=== PATIENT | female | born 1965 | race African-American/Black ===

== ENCOUNTER 2022-03-12 11:26 | Outpatient (CLI) | payer OTHER | END 2022-03-12 11:27 | disposition home or self-care (01) | LOC: CSHLAB 11:26 | PROVIDERS: ATTEND Obstetrics & Gynecology | DX: Z01.818 Encounter for other preprocedural examination (principal); Z20.822 Contact with and (suspected) exposure to COVID-19; D25.9 Leiomyoma of uterus, unspecified; D36.9 Benign neoplasm, unspecified site | CPT/HCPCS: 84703; 85027; 86850; 86900; 86901; 93005; 93010; U0003; U0005 ==

== ENCOUNTER 2022-03-17 08:05 | Day surgery (SDC) | payer OTHER ==
[2022-03-12 13:59] LABS: Hemoglobin 12.9 g/dL (12.0-15.5); Mean Corpuscular HGB CONC 33.3 g/dL (32.0-36.0); Mean Corpuscular Hemoglobin 27.4 pg (27.0-33.0); Mean Corpuscular Volume 82.3 fl (81.6-98.3); Mean Platelet Volume 10.3 fl (7.4-10.4); Platelet Count 260 10x3/uL (150-450); RBC Distribution Width 12.3 % (11.5-14.5); White Blood Cell (WBC) Count 5.5 10x3/uL (3.5-10.5)
[2022-03-12 14:06] LABS: BHCG - Serum Negative (NEGATIVE); Pregs Control Background? CLEAR/WHITE (CLR/WHITE); Pregs Control Bar Appear? YES (CONTROL BAR)
[2022-03-13 12:27] LABS: SARS-CoV-2 PCR by NAA Not Detected (NotDetected)
[2022-03-15 11:49] VITALS: BMI 36.7
[2022-03-17] MEDS ORDERED: CeleCOXIB 100 MG CAP ONE (08:27)
[2022-03-17] MEDS ORDERED: Famotidine/PF 20 mg/2ml Vial ONE (08:27)
[2022-03-17] MEDS ORDERED: Gabapentin 300 MG CAP ONE (08:27)
[2022-03-17] MEDS ORDERED: Lidocaine 1% MPF 2 ML VIAL ONE (08:28)
[2022-03-17] MEDS ORDERED: Midazolam HCl 2 mg/2 ml Vial ONE ×2 (09:57→10:23)
[2022-03-17] MEDS ORDERED: PROPOFOL 20 ML ONE (10:23)
[2022-03-17] MEDS ORDERED: Lidocaine 1% PF 5 ML VIAL ONE (10:23)
[2022-03-17] MEDS ORDERED: Fentanyl 250 MCG/5 ML VIAL ONE (10:23)
[2022-03-17] MEDS ORDERED: Rocuronium Bromide 10 MG/ML (10ML VIAL) ONE (10:23)
[2022-03-17] MEDS ORDERED: Dexamethasone 4 mg/ml Vial ONE (10:23)
[2022-03-17] MEDS ORDERED: Ondansetron PF 4 MG/2 ML Vial ONE (10:23)
[2022-03-17] MEDS ORDERED: Ketorolac Tromethamine 30 MG/ML VIAL ONE (10:24)
[2022-03-17] MEDS ORDERED: Glycopyrrolate 0.2 MG/ML 5 ML SYRINGE ONE (10:24)
[2022-03-17] MEDS ORDERED: ceFAZolin 2 GM/Dextrose 50 ML IVPB ONE (10:40)
[2022-03-17] MEDS ORDERED: Bupivacaine PF 0.5% 30 ML VIAL ONE (10:51)
[2022-03-17] MEDS ORDERED: EPINEPHrine 1 MG/ML AMP ONE (10:51)
[2022-03-17] MEDS ORDERED: PHENYLEPHRINE-NS 100 MCG/ML 10 ML SYRINGE ONE (11:41)
[2022-03-17] MEDS ORDERED: ePHEDrine Sulfate 50 MG/10 ML VIAL ONE (12:15)
[2022-03-17] MEDS ORDERED: Meperidine HCl/PF 25 MG/ML VIAL ONE (12:20)
== END 2022-03-17 15:14 | disposition home or self-care (01) ==
LOC: CSHSDC 08:05
PROVIDERS: ATTEND Obstetrics & Gynecology
PROC: 0UT74ZZ Resection of Bilateral Fallopian Tubes, Percutaneous Endoscopic Approach (ICD-10-PCS; principal; 2022-03-17)
PROC: 0UT24ZZ Resection of Bilateral Ovaries, Percutaneous Endoscopic Approach (ICD-10-PCS; principal; 2022-03-17)
PROC: 0UT94ZZ Resection of Uterus, Percutaneous Endoscopic Approach (ICD-10-PCS; principal; 2022-03-17)
DX: D25.0 Submucous leiomyoma of uterus (principal); D25.1 Intramural leiomyoma of uterus; D25.2 Subserosal leiomyoma of uterus; D27.1 Benign neoplasm of left ovary; D27.0 Benign neoplasm of right ovary; I10 Essential (primary) hypertension; E78.5 Hyperlipidemia, unspecified; R73.03 Prediabetes; E66.9 Obesity, unspecified; Z68.36 Body mass index [BMI] 36.0-36.9, adult; Z79.84 Long term (current) use of oral hypoglycemic drugs; Z79.899 Other long term (current) drug therapy; Z88.8 Allergy status to other drugs, medicaments and biological substances; Z20.822 Contact with and (suspected) exposure to COVID-19
CPT/HCPCS: 36415; 36416; 84703; 85027; 86850; 86900; 86901; 88304; 88307; C1776; J0171; J0690; J1100; J1885; J2175; J2250; J2405; J2704; J3010; S0020; S0028; U0003; U0005